=== PATIENT | female | born 1985 | race Caucasian/White ===

== ENCOUNTER → 2023-10-28 | Outpatient (CLI) | payer BC, SELFPAY | END | disposition home or self-care (01) | LOC: LABSPEC 13:10 | PROVIDERS: Referring Provider Nurse Practitioner Women's Health; Visit Provider Nurse Practitioner Women's Health | DX: N89.8 Other specified noninflammatory disorders of vagina (principal) | CPT/HCPCS: 87070; 87077; 87205 ==

== ENCOUNTER → 2024-07-26 | Outpatient (CLI) | payer BC, SELFPAY ==
--- NOTE | 2024-07-26 13:12 | US_ITS ---
INDICATION: AUB EXAMINATION: Ultrasound US Pelvis Non OB Complete With Transvaginal Imaging TECHNIQUE: Transabdominal and transvaginal pelvic ultrasound was performed. Grayscale, spectral waveform, and color flow Doppler evaluation of the adnexa. COMPARISON: No relevant prior comparison study available FINDINGS: UTERUS: Anteverted. The uterus measures 11.3 x 5.7 x 6.3 cm. There is a mass in the posterior fundus of the uterus measuring about 3.5 x 3.5 x 2.4 cm consistent with uterine fibroid. The endometrial stripe measures 14 mm in AP diameter which is borderline in thickness. Nabothian cyst seen in the cervix. RIGHT OVARY: 4.3 x 3.5 x 2.6 cm. There is a septated 3.2 cm cyst in the right ovary. There is another cyst measuring about 2.5 cm. There is normal arterial inflow and venous outflow present in the right ovary. LEFT OVARY: Absent, previously removed. FREE FLUID: None. The calculated prevoid bladder volume is 570 cc. US/Pelvic w/ Transvaginal IMPRESSION: 1. Uterine fibroid. 2. Right ovarian cysts. 3. Status post left nephrectomy. 4. Nabothian cysts in the cervix. Electronically Signed: Raúl Vazquez MD at 9:43 EDT ,
== END | disposition home or self-care (01) ==
PROVIDERS: PCP Physician Assistant; Referring Provider Nurse Practitioner Women's Health; Visit Provider Nurse Practitioner Women's Health
DX: N93.9 Abnormal uterine and vaginal bleeding, unspecified (principal)
CPT/HCPCS: 76830; 76856

== ENCOUNTER → 2024-08-02 | Outpatient (CLI) | payer BC, SELFPAY ==
--- NOTE | 2024-08-02 | EMB_PTH ---
PATIENT: ALLIE MAIN LOC: [facility] U#:[id number] AGE/SX: 38/F ROOM: RE08/02/[address]: GERALD [place] : 1985 BED: DIS: 08/02/2024 SPEC #: [id number] RECD: 08/02/24 13:12 STATUS: GREG VALLESYovani #: [id number] GABBY: 08/02/24 00:[address]: Argentina Camacho NP DEPT: SURGICAL PATHOLOGY RECD BY: Chinedu Diaz ENTERED: 08/02/24 13:12 SP TYPE: ENDOM BX/C DEBBIE DR: Jackson Ballard PA-C Tissues: Endometrium, NOS Procedures: Surgery Specimen Level IV HEADER OPERATION: Endometrial biopsy PRE-OP DIAGNOSIS: Abnormal uterine bleeding TISSUE SUBMITTED: Endometrial tissue MICROSCOPIC DIAGNOSIS Endometrial biopsy: Consistent with extensive exogenous hormone effects. Focal area of secretory endometrium. See comment. SJ.mr 08/03/2024 COMMENT Clinical correlation and appropriate follow up are necessary. MICROSCOPIC DESCRIPTION Slides are reviewed. GROSS DESCRIPTION Received is one container labeled with the patient's name and not further designated. The specimen consists of multiple irregular fragments of pink soft tissue that in aggregate measure 7.5 x 3.0 x 0.3 cm. The specimen is totally submitted in three cassettes. 08/02/2024 TC:5 CPT:76033
[2024-08-02 12:32] LABS: Absolute Lymphocyte Count 1.52 X10^3/uL (0.83-4.51); Basophil# 0.03 X10^3/uL; Basophil% 0.3 % (0-1); Eosinophil# 0.09 X10^3/uL; Eosinophils% 0.8 % (0-5); Hematocrit 37.7 % (37-47); Hemoglobin 12.1 g/dL (12.0-15.0); Lymphocyte # 1.52 X10^3/ul (0.83-4.51); Lymphocyte % 13.4 % (19-41); Mean Corp Hgb Conc 32.1 g/dL (32-36); Mean Corpuscular Volume 84.2 fL (81-99); Mean Platelet Vol. 10.3 fl (6.2-12.0); Monocyte# 0.66 X10^3/uL; Monocyte% 5.8 % (0-10); NRBC Flagged by Analyzer 0 % (0-5); Neutrophil # 8.98 X10^3/uL (2.7-7.7); Neutrophil % 79.3 % (47-70); Platelet Count 340 K/mm3 (150-450); RBC Distribution Width CV 13.3 % (11.6-14.6); RBC Distribution Width SD 41.4 fl (35.1-43.9); Red Blood Count 4.48 M/mm3 (4.2-5.4); White Blood Count 11.3 K/mm3 (4.4-11.0)
[2024-08-03 04:08] LABS: Cancer Antigen 125 13.9 U/mL (0.0-38.1); Carcinoembryonic Antigen 1.4 ng/mL (0.0-4.7)
[2024-08-10 15:09] LABS: HPV APTIMA, High Risk Negative (Negative)
== END | disposition home or self-care (01) ==
LOC: BWCLAB 10:27
PROVIDERS: PCP Physician Assistant; Referring Provider Nurse Practitioner Women's Health; Visit Provider Nurse Practitioner Women's Health
DX: Z12.4 Encounter for screening for malignant neoplasm of cervix (principal); N89.8 Other specified noninflammatory disorders of vagina
CPT/HCPCS: 36415; 82378; 85025; 86304; 87070; 87205; 87624; 88175; 88305; G0145

== ENCOUNTER 2024-08-19 13:03 | Emergency (ER) | payer BC, SELFPAY ==
[2024-08-19 13:03] VITALS: BP 175/105; PULSE 84; RESP 16; TEMP 36.6; O2SAT 98; BMI 32.5
--- NOTE | 2024-08-19 13:40 | ED.VIS.FEGU ---
HPI <REE Dozier - Last Filed: 08/19/24 18:15> HPI - Female History of Present Illness Chief Complaint: Vag Bleeding Narrative Narrative: Patient presenting today due to abnormal vaginal bleeding that she has had over the past 7 weeks. She is currently being treated with Megace but despite taking this she has had to change her pad 6 times already today. She has concerns that she could be anemic. She reports that she feels fatigued and has a headache. She did call her associate sales manager office today and they recommended that she come into the ED for evaluation. She last had a transvaginal ultrasound in June that showed a large uterine fibroid, she also has a history of ovarian cysts. She reports that she will likely undergo a hysterectomy soon. PFSH <REE Dozier - Last Filed: 08/19/24 18:15> [facility] Medical History Endometriosis determined by laparoscopy History of ovarian cyst Asthma Home Medications ?Medication ?Instructions ?Recorded ?Last Taken ?Type albuterol sulfate 90 mcg/actuation 2 puff inhalation Q6H PRN 07/30/21 Unknown History aerosol inhaler clobetasol 0.05 % topical ointment 1 applic topical .COMPLEX #15 grams 07/30/21 Unknown Rx fenofibrate 50 mg capsule 50 mg PO DAILY 07/30/21 Unknown History clotrimazole-betamethasone 1 1 applic topical BID 2 weeks #45 10/28/23 Unknown Rx %-0.05 % topical cream grams megestrol 40 mg tablet 40 mg PO .COMPLEX #45 tabs 08/12/24 Unknown Rx Allergy/AdvReac Type Severity Reaction Status Date / Time Penicillins Allergy Intermediate Hives Verified 08/19/24 13:06 Sulfa (Sulfonamide Allergy Intermediate Hives Verified 08/19/24 13:06 Antibiotics) Hand Mud Analysis 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 Allergy Hives Verified 08/19/24 13:06 Family History Grandmother Pancreatic cancer Surgical History H/O unilateral oophorectomy H/O tubal ligation S/P Social History household members: spouse and children number of children: 3 current occupational status: employed current occupation: [employer] history of recent travel: Yes sexually active: Yes Smoking Status: Never smoker alcohol intake: never substance use type: does not use what type of physical activity do you participate in: aerobics and weight training frequency: 5-6 times per week seatbelt use: always do you feel safe at home: Yes additional social history: - [place] ROS <REE Dozier - Last Filed: 08/19/24 18:15> ROS ED Constitutional Constitutional ED: Reports other Details: Fatigue ; Denies chills or fever(s) Cardiovascular Cardiovascular: Denies chest pain Respiratory/Chest Respiratory/Chest: Denies dyspnea Gastrointestinal Gastrointestinal: Denies abdominal pain, nausea or vomiting Genitourinary Genitourinary ED: Denies dysuria or urinary frequency Musculoskeletal Musculoskeletal: Denies arthralgias or myalgias Integumentary Denies rash Neurologic Neurologic: Reports headache(s) EXAM <REE Dozier - Last Filed: 08/19/24 18:15> Physical Exam Const Vital Signs: 08/19/24 13:03 08/19/24 15:03 08/19/24 16:23 Temperature 97.8 F 97.8 F Temperature Source Oral Pulse Rate 84 78 78 Respiratory Rate 16 15 Blood Pressure 175/105 H 148/89 H 114/76 Blood Pressure Mean 128 108 88 Pulse Ox 98 100 Oxygen Delivery Method Room Air Positive well nourished, well developed and no apparent distress General Appearance ED: well developed HEENT Reports normocephalic and head/scalp atraumatic Mouth ED: Yes moist mucous membranes normal Eyes PERRL and EOMs intact bilaterally Neck full ROM and supple Chest Wall inspection of chest normal Resp normal respiratory effort and clear to auscultation bilaterally Cardio regular rate and regular rhythm GI soft to palpation, non-tender, non-distended and no masses Narrative: Pelvic examination performed. Normal external genitalia, a few small clots within the vaginal canal, cervix without any lesions, cervical os closed, no active bleeding from the cervix. Back/Spine normal ROM and normal to inspection Extremity normal to inspection and full ROM Neuro oriented x3, CN's II-XII intact bilaterally, moves all extremities, no focal motor deficits and no sensory deficits noted Sensorium / Orientation: awake and alert Psych mental status grossly normal and thought process normal Skin no rashes or lesions noted and no wounds <Dr. Forrest Romano DO - Last Filed: 08/19/24 16:08> Physical Exam Const Vital Signs: 08/19/24 13:03 08/19/24 15:03 08/19/24 16:23 Temperature 97.8 F 97.8 F Temperature Source Oral Pulse Rate 84 78 78 Respiratory Rate 16 15 Blood Pressure 175/105 H 148/89 H 114/76 Blood Pressure Mean 128 108 88 Pulse Ox 98 100 Oxygen Delivery Method Room Air MDM <REE Dozier - Last Filed: 08/19/24 18:15> [facility] Narrative Medical decision making narrative: Patient presenting today with concerns for anemia. She has had abnormal vaginal bleeding over the past 6 weeks, she is currently taking Megace. She reports that she was taking 2 other medications prior to the Megace but is unsure what exactly she was on, they did not seem to stop her bleeding. She has a history of uterine fibroids and ovarian cyst. She reports she likely will be needing a hysterectomy soon. She is nontoxic-appearing, she initially was hypertensive but her blood pressure did improve. Her initial H&H was 13.2 and 39.3, this was repeated prior to discharge and was 12.1 and 37.2. I did perform a pelvic exam, she had a few small clots within her vaginal canal but no active bleeding. Her ultrasound shows a right ovarian cyst, complex cyst within the left adnexa, and uterine fibroid. The attending did speak with Dr. Díaz, they recommend outpatient follow-up. They also recommended a dose of IV estrogen here which was ordered. She will be discharged home in a stable condition. I have personally performed a face to face assessment of the patient and have reviewed the EMILE Note. I performed a substantive portion of the visit including all aspects of the following. My gallardo findings include: History is 38-year-old female history of uterine fibroid presenting with multi week history of vaginal bleeding. Worse today. Patient feeling fatigued with headache. Patient was sent to the emergency room by a gynecology clinic concern for anemia. Patient has been on multiple hormonal medications without significant relief of the bleeding. Exam is afebrile hypertensive. Not tachycardic. No parlor. Pelvic exam performed by a physician apartment assistant manager. Please see their note. Medical Decison Making hemoglobin 13.2 was repeated about 2 hours later is 12.1. No significant bleeding noted on pelvic examination per PA. test is negative. Pelvic ultrasound was obtained. I discussed the results of this ultrasound with Dr. Díaz directly who reviewed the images. Recommendation is outpatient follow-up. She received a dose of estrogen IV here in the department. Will continue home medications. Lab Data Attestation: I reviewed the patient's lab results. Labs: Laboratory Results - last 24 hr 08/19/24 08/19/24 13:25 15:30 Hgb 13.2 12.1 Hct 39.3 37.2 Serum , Qual NEGATIVE Radiography Diagnostic Testing: Clinical Impression(s) from Imaging Studies Transvaginal US 08/19/24 13:47 IMPRESSION: 2.7 cm x 2.3 cm x 2.4 cm right ovarian cyst. Status post left oophorectomy. 3.6 cm x 2.2 cm x 2 some are complex cystic structure in left adnexa. There is also evidence of a 2.3 cm x 1.9 cm x 1.9 cm simple cyst in the left adnexa. Electronically Signed: Eddie Lazaro MD at 15:15 EST , <Dr. Forrest Romano, DO - Last Filed: 08/19/24 16:08> [facility] Narrative Medical decision making narrative: Patient presenting today with concerns for anemia. She has had abnormal vaginal bleeding over the past 6 weeks, she is currently taking Megace. She reports that she was taking 2 other medications prior to the Megace but is unsure what exactly she was on, they did not seem to stop her bleeding. She has a history of uterine fibroids and ovarian cyst. She reports she likely will be needing a hysterectomy soon. She is nontoxic-appearing, she initially was hypertensive but her blood pressure did improve I have personally performed a face to face assessment of the patient and have reviewed the EMILE Note. I performed a substantive portion of the visit including all aspects of the following. My gallardo findings include: History is 38-year-old female history of uterine fibroid presenting with multi week history of vaginal bleeding. Worse today. Patient feeling fatigued with headache. Patient was sent to the emergency room by a gynecology clinic concern for anemia. Patient has been on multiple hormonal medications without significant relief of the bleeding. Exam is afebrile hypertensive. Not tachycardic. No parlor. Pelvic exam performed by a physician apartment assistant manager. Please see their note. Medical Decison Making hemoglobin 13.2 was repeated about 2 hours later is 12.1. No significant bleeding noted on pelvic examination per PA. test is negative. Pelvic ultrasound was obtained. I discussed the results of this ultrasound with Dr. Díaz directly who reviewed the images. Recommendation is outpatient follow-up. She received a dose of estrogen IV here in the department. Will continue home medications. History & Record Review Discussion w/independent historian: Patient and Significant other Additional record(s) reviewed:: Prior outpatient record and Prior labs Lab Data Labs: Laboratory Results - last 24 hr 08/19/24 08/19/24 13:25 15:30 Hgb 13.2 12.1 Hct 39.3 37.2 Serum , Qual NEGATIVE Radiography Diagnostic Testing: Clinical Impression(s) from Imaging Studies Transvaginal US 08/19/24 13:47 IMPRESSION: 2.7 cm x 2.3 cm x 2.4 cm right ovarian cyst. Status post left oophorectomy. 3.6 cm x 2.2 cm x 2 some are complex cystic structure in left adnexa. There is also evidence of a 2.3 cm x 1.9 cm x 1.9 cm simple cyst in the left adnexa. Electronically Signed: Eddie Lazaro MD at 15:15 EST , Discharge Plan Triage Chief Complaint: Vag Bleeding ED Midlevel Provider: Cecy Ash ED Provider: Forrest Romano Dx/Rx/DC Orders Clinical Impression: Uterine fibroid, Abnormal uterine bleeding (AUB) Instructions: ED Dysfunctional Uterine Bleeding, ED Uterine Fibroids Prescriptions: No Action fenofibrate 50 mg capsule 50 mg PO DAILY albuterol sulfate 90 mcg/actuation HFA aerosol inhaler 2 puff inhalation Q6H PRN clobetasol 0.05 % ointment 1 applic topical .COMPLEX Qty: 15 2RF Rx Instructions: 1 applic topical apply bid X 2 weeks, daily X 2 weeks then prn. Small amount and massge in; clotrimazole-betamethasone 1-0.05 % cream 1 applic topical BID 14 Days Qty: 45 1RF megestrol 40 mg tablet 40 mg PO .COMPLEX Qty: 45 0RF Rx Instructions: 40 mg PO tid until bleeding stops then bid to finish RX; Primary Care Provider: Jackson Ballard Referrals: Jackson Ballard PA-C [Primary Care Provider] - Precious Mcqueen DO [Med Staff - Active Staff] - As soon as possible Print Language: Kinyarwanda Disposition Disposition: Home, Self Care Discharge Date/Time: 08/19/24 16:24
[2024-08-19] MEDS: Ketorolac 15 MG/ML Vial IV (13:42)
[2024-08-19 13:47] LABS: Hematocrit 39.3 % (37-47); Hemoglobin 13.2 g/dL (12.0-15.0)
--- NOTE | 2024-08-19 13:47 | US_ITS ---
STUDY: ULTRASOUND OF THE FEMALE PELVIS - COMPLETE REASON FOR EXAM: Female, 38 years old. Abnormal vaginal bleeding LMP: July 14, 2024. TECHNIQUE: Transvaginal TECHNICAL QUALITY: Adequate. COMPARISON: Comparison is made with prior study dated July 26, 2024. FINDINGS: The uterus is anteverted and is in a midline position. The uterus measures 10.1 cm x 6.5 cm x 5 cm. Normal uterine cervix. The endometrium measures 9.7 mm in thickness, and is hyperechoic. There is no demonstrated endometrial mass. 2 fibroids are seen. The larger fibroid measures 3.6 cm x 3.8 cm x 3.1 cm. I.U.D. - The patient does not have an I.U.D. The right ovary is visualized. The right ovary measures 4.1 cm x 3.8 cm x 2.8 cm. There is a 2.7 cm x 2 0.3 cm x 2.4 cm simple cyst in the right ovary. There is no visualized right adnexal mass or complex lesion. There is normal arterial and normal venous vascularity. The patient is status post left oophorectomy. There is evidence of a 3.6 cm x 2.27 x 2 cm complex cystic structure in the left adnexa. Adjacent to this, there is a 2.3 cm x 1.9 cm x 1.9 cm cyst. There is no fluid in the cul-de-sac. US/Transvaginal Non- IMPRESSION: 2.7 cm x 2.3 cm x 2.4 cm right ovarian cyst. Status post left oophorectomy. 3.6 cm x 2.2 cm x 2 some are complex cystic structure in left adnexa. There is also evidence of a 2.3 cm x 1.9 cm x 1.9 cm simple cyst in the left adnexa. Electronically Signed: Eddie Lazaro MD at 15:15 EST ,
[2024-08-19] MEDS: Estrogens,Conj. 25 MG Vial IV (14:49)
[2024-08-19 15:03] VITALS: BP 148/89; PULSE 78
[2024-08-19 15:37] LABS: Hematocrit 37.2 % (37-47); Hemoglobin 12.1 g/dL (12.0-15.0)
[2024-08-19 15:54] LABS: Internal QC Validated? YES +Cl - CLEAR BKGD; Pregnancy, Serum, hCG Quali. NEGATIVE Negative
[2024-08-19 16:23] VITALS: BP 114/76; PULSE 78; RESP 15; TEMP 36.6; O2SAT 100
== END 2024-08-19 16:24 | disposition home or self-care (01) ==
PROVIDERS: Physician Assistant; Emergency Provider Emergency Medicine; PCP Physician Assistant; Referring Provider Emergency Medicine; Visit Provider Emergency Medicine
DX: D25.9 Leiomyoma of uterus, unspecified (principal); N93.9 Abnormal uterine and vaginal bleeding, unspecified; N83.201 Unspecified ovarian cyst, right side; Z79.818 Long term (current) use of other agents affecting estrogen receptors and estrogen levels; J45.909 Unspecified asthma, uncomplicated; R51.9 Headache, unspecified
CPT/HCPCS: 76830; 84703; 85014; 85018; 96374; 96375; 99282; A4216; J1410

== ENCOUNTER → 2024-08-23 | Outpatient (CLI) | payer BC, SELFPAY ==
[2024-08-23 12:22] LABS: Absolute Lymphocyte Count 1.47 X10^3/uL (0.83-4.51); Absolute Neutrophil Count 4.6 X10^3/uL (2.0-7.7); Basophil# 0.01 X10^3/uL; Basophil% 0.1 % (0-1); Eosinophil# 0.16 X10^3/uL; Eosinophils% 2.4 % (0-5); Hematocrit 36.6 % (37-47); Hemoglobin 11.7 g/dL (12.0-15.0); Lymphocyte # 1.47 X10^3/ul (0.83-4.51); Mean Corpuscular Hgb 27.5 pg (27.0-32.0); Mean Corpuscular Volume 85.9 fL (81-99); Mean Platelet Vol. 11.1 fl (6.2-12.0); Monocyte# 0.46 X10^3/uL; Monocyte% 6.9 % (0-10); NRBC Flagged by Analyzer 0 % (0-5); Neutrophil # 4.57 X10^3/uL (2.7-7.7); Neutrophil % 68.3 % (47-70); Platelet Count 255 K/mm3 (150-450); RBC Distribution Width CV 13.9 % (11.6-14.6); RBC Distribution Width SD 42.8 fl (35.1-43.9); Red Blood Count 4.26 M/mm3 (4.2-5.4); White Blood Count 6.7 K/mm3 (4.4-11.0)
[2024-08-23 12:56] LABS: ALB/GLOB Ratio 0.9 RATIO (0.9-2.4); AST(SGOT) 11 U/L (15-37); Alanine Aminotransfer ALT/SGPT 14 U/L (13-56); Albumin, Serum 3.7 g/dL (3.2-5.0); Alkaline Phosphatase 53 U/L (45-117); Anion Gap 6 (5-15); BUN 12 mg/dL (7-18); BUN/Creat Ratio 17.1 RATIO (10-20); Calcium,Total 9.1 mg/dL (8.5-10.1); Chloride 111 mmol/L (98-107); EST Glomerular Filtration Rate 98 mL/min (>60); Est Glom Filt Rate - Afr Amer 119 mL/min (>60); Globulin 4.2 g/dL (2.2-4.2); Glucose 85 mg/dL (74-106); Protein, Total 7.9 g/dL (6.4-8.2); Sodium Level 139 mmol/L (136-145); Thyroid Stim Hormone (TSH) 0.897 uIU/mL (0.358-3.740)
== END | disposition home or self-care (01) ==
LOC: BWCLAB 10:22
PROVIDERS: Obstetrics & Gynecology; PCP Physician Assistant; Referring Provider Nurse Practitioner Women's Health; Visit Provider Nurse Practitioner Women's Health
DX: N93.9 Abnormal uterine and vaginal bleeding, unspecified (principal); N92.0 Excessive and frequent menstruation with regular cycle; R42 Dizziness and giddiness; Z13.29 Encounter for screening for other suspected endocrine disorder; E78.00 Pure hypercholesterolemia, unspecified
CPT/HCPCS: 36415; 80053; 84443; 85025; 86850; 86900; 86901

== ENCOUNTER 2024-08-30 09:51 | Day surgery (SDC) | payer BC, SELFPAY ==
--- NOTE | 2024-08-23 10:37 | EKG12_ITS ---
Test Reason : PREOP Blood Pressure : */* mmHG Vent. Rate : 69 BPM Atrial Rate : 69 BPM P-R Int : 124 ms QRS Dur : 88 ms QT Int : 396 ms P-R-T Axes : -21 29 48 degrees QTcB Int : 424 ms Normal sinus rhythm Normal ECG Confirmed by Gavino Martinez ([id number]), book or script editor HUMA THAKUR ([id number]) on 08/24/2024 5:49:32 AM Referred By: Precious Mcqueen Confirmed By: Gavino Martinez
[2024-08-30] VITALS (14 sets, daily range): BP systolic 114–159; BP diastolic 57–102; PULSE 73–95; RESP 16–17; TEMP 36.4–37.6; O2SAT 93–100; BMI 31.8
--- NOTE | 2024-08-30 10:20 | HP.PCM_ITS ---
History and Physical Date of Admission: 08/30/24 Vital Signs 08/20/2414:09 08/23/2409:49 08/23/2409:51 Height 5 ft 4 in 5 ft 4 in 5 ft 4 in Weight: 190 lb BMI 32.5 BP 126/84 H Intake Visit Reasons: TRH possible lysis of adhesions, BS, cystoscopy Hardboard Supervisor Required: No Is patient in pain?: No Allergies Penicillins Allergy (Intermediate, Verified 08/23/24 09:49) HivesSulfa (Sulfonamide Antibiotics) Allergy (Intermediate, Verified 08/23/24 09:49) HivesHand Sap Basis Administrator Allergy (Verified 08/23/24 09:49) Hives Medications ?Medication ?Instructions ?Recorded ?Confirmed ?Type albuterol sulfate 90 mcg/actuation 2 puff inhalation Q6H PRN 07/30/21 08/23/24 History aerosol inhaler clobetasol 0.05 % topical ointment 1 applic topical .COMPLEX #15 grams 07/30/21 08/23/24 Rx fenofibrate 50 mg capsule 50 mg PO DAILY 07/30/21 08/23/24 History clotrimazole-betamethasone 1 1 applic topical BID 2 weeks #45 10/28/23 08/23/24 Rx %-0.05 % topical cream grams megestrol 40 mg tablet 40 mg PO .COMPLEX #45 tabs 08/12/24 08/23/24 Rx benazepril 20 mg tablet 20 mg PO QDAY 08/23/24 08/23/24 History PFSH Medical History Endometriosis determined by laparoscopy History of ovarian cyst Asthma Surgical History H/O unilateral oophorectomy H/O tubal ligation S/P Family History Grandmother Pancreatic cancer Social History household members: spouse and children number of children: 3 current occupational status: employed current occupation: [employer] history of recent travel: Yes sexually active: Yes Smoking Status: Never smoker alcohol intake: never substance use type: does not use what type of physical activity do you participate in: aerobics and weight training frequency: 5-6 times per week seatbelt use: always do you feel safe at home: Yes additional social history: - [place] HPI TRH possible lysis of adhesions, BS, cystoscopy Details: Details: ALLIE 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 This is being done somewhat urgently for heavy vaginal bleeding. She was in the ER yesterday due to persistent heavy vaginal bleeding and dizziness. There her hg was noted to be 13 and ultrasound showed the following: STUDY: ULTRASOUND OF THE FEMALE PELVIS - COMPLETE REASON FOR EXAM: Female, 38 years old. Abnormal vaginal bleeding LMP: July 14, 2024. TECHNIQUE: Transvaginal TECHNICAL QUALITY: Adequate. COMPARISON: Comparison is made with prior study dated July 26, 2024. FINDINGS: The uterus is anteverted and is in a midline position. The uterus measures 10.1 cm x 6.5 cm x 5 cm. Normal uterine cervix. The endometrium measures 9.7 mm in thickness, and is hyperechoic. There is no demonstrated endometrial mass. 2 fibroids are seen. The larger fibroid measures 3.6 cm x 3.8 cm x 3.1 cm. I.U.D. - The patient does not have an I.U.D. The right ovary is visualized. The right ovary measures 4.1 cm x 3.8 cm x 2.8 cm. There is a 2.7 cm x 2 0.3 cm x 2.4 cm simple cyst in the right ovary. There is no visualized right adnexal mass or complex lesion. There is normal arterial and normal venous vascularity. The patient is status post left oophorectomy. There is evidence of a 3.6 cm x 2.27 x 2 cm complex cystic structure in the left adnexa. Adjacent to this, there is a 2.3 cm x 1.9 cm x 1.9 cm cyst. There is no fluid in the cul-de-sac. US/Transvaginal Non- IMPRESSION: 2.7 cm x 2.3 cm x 2.4 cm right ovarian cyst. Status post left oophorectomy. 3.6 cm x 2.2 cm x 2 some are complex cystic structure in left adnexa. There is also evidence of a 2.3 cm x 1.9 cm x 1.9 cm simple cyst in the left adnexa. she has tried continuous ocps, higher strength ocps, progesterone only therapy, and finally yesterday IV estrogen. endometrial biopsy and pap were normal. Her TSH level is still pending. She would like to proceed with hysterectomy as soon as possible. History 2 Elective abortions Hx Para 2 Spontaneous abortions Hx # Term Pregnancies Ectopic pregnancies Hx # Pregnancies Multiple births # of living children 2 Past Pregnancies Del. Date Name GA/Weeks Outcome Route Bth Weight Gen Labor Lgth Anesthesia Del Locatn Provider FOB Unknown Tanmay 2002 adopted Unknown Saul 2005 Unknown Sol 2011 ROS Const ROS Unobtainable: All systems reviewed & are unremarkable except as noted in H Resp Resp: Reports system reviewed and no additional complaints, except as documented; Denies cough GI GI: Reports as per HPI Psych Psych: Reports system reviewed and no additional complaints, except as documented Exam Const General: cooperative, healthy appearing, comfortable and no acute distress Resp Effort & Inspection: normal respiratory effort Skin General: no rashes or lesions noted Psych Appearance: grossly normal Speech and Movement: speech and movement normal Coding Level of Care Code Off vis,est,level 4 Diagnoses Heavy menstrual bleeding N92.0 Endometriosis determined by laparoscopy N80.9 Right ovarian cyst N83.201 Intramural leiomyoma of uterus D25.1 Uterine leiomyoma location: intramural Abnormal uterine bleeding (AUB) N93.9 Menorrhagia with regular cycle N92.0 Assessment and Plan Assessment and Plan (1) Heavy menstrual bleeding: Status: Acute (2) Endometriosis determined by laparoscopy: Status: Acute (3) Right ovarian cyst: Status: Acute Comment: 2 cysts-repeat US 4-6 wk (4) Uterine fibroid: Status: Acute Qualifiers: Uterine leiomyoma location: intramural Qualified Code(s): D25.1 - Intramural leiomyoma of uterus Comment: 3.2cm (5) Abnormal uterine bleeding (AUB): Status: Acute Comment: failed aygestin. Megace (6) Menorrhagia with regular cycle: Status: Acute Plan After discussing the patient's diagnosis and treatment plan options, patient wishes to proceed with surgical management. I have discussed with the patient the risks, benefits, and alternatives of the procedure which include but are not limited to risks of anesthesia, bleeding, infection, possible damage to bowel, bladder, or surrounding vasculature which could lead to additional surgery to evaluate any complications. Patient agrees to procedure and wishes to proceed. ACOG/uptodate references given for additional information regarding procedure. plan for robotic hyst, bs, cysto on 08/30/24
[2024-08-30] MEDS: Magnesium 1 GM over 15 mins IV (10:36)
[2024-08-30] MEDS: Lactated Ringers 1,000 ML 40 ML IV (10:36)
[2024-08-30] MEDS: Gentamicin 300 MG in Dextrose 5%-Water (50mL Bag) 50 ML 100 MG IV (10:37)
[2024-08-30] MEDS: Gabapentin 600 MG Tablet PO (10:37)
[2024-08-30] MEDS: Phenazopyridine 95 MG Tablet 190 MG PO (10:37)
[2024-08-30] MEDS: Acetaminophen 500 MG Tablet 1000 MG PO ×2 (10:37→20:15)
[2024-08-30] MEDS: Celecoxib 200 MG Capsule 400 MG PO (10:37)
--- NOTE | 2024-08-30 10:44 | PCM.PRE.AN2 ---
ASA Classification* ASA Classification ASA Classification: 2 Assessment & Plan Anesthesia* Anesthesia Assessment Anesthesia Assessment: Discussed sedation and/or anesthesia options, risks, benefits, and alternatives with patient/parents/legal guardian/POA. Questions invited. The patient/parents/legal guardian/POA seems to understand and agrees to proceed with anesthesia plan. Reviewed the physical assessment, medical history, allergy history and patient home medications list prior to surgery/procedure/anesthetic and documented any changes. Performed airway and anesthesia risk assessments. Anesthesia Type Anesthesia Type: General Anesthesia Focused Assessment* Temperature: 99 F Pulse Rate: 91 Blood Pressure: 159/102 Respiratory Rate: 16 Pulse Ox: 99 Airway Assessment Mouth opens: >3 cm Mallampati Score: II Focused Labs Anesthesia Preop lab: CBC WBC 6.7 K/mm3 (4.4-11.0) 08/23/24 10:23 RBC 4.26 M/mm3 (4.2-5.4) 08/23/24 10:23 Hgb 11.7 g/dL (12.0-15.0) L 08/23/24 10:23 Hct 36.6 % (37-47) L 08/23/24 10:23 Plt Count 255 K/mm3 (150-450) 08/23/24 10:23 CHEMISTRY Potassium 4.0 mmol/L (3.5-5.1) 08/23/24 10:23 Sodium 139 mmol/L (136-145) 08/23/24 10:23 Magnesium 2.0 mg/dL (1.6-2.6) 08/23/24 10:23 BUN 12 mg/dL (7-18) 08/23/24 10:23 Creatinine 0.70 mg/dL (0.55-1.02) 08/23/24 10:23 Glucose 85 mg/dL (74-106) 08/23/24 10:23 TSH 0.897 uIU/mL (0.358-3.740) 08/23/24 10:23 COAG Tst Clinic Negative 08/02/24 09:52 Pre-Assessment Diagnosis/Proposed Procedure Planned Operative Procedure(s): TOTAL ROBOTIC HYSTERECTOMY POSS LYSIS OF ADHESIONS BILAT SALPINGECTOMY Anesthesia History 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 When Was Last Pacemaker Check QUESTION #4 FULL TEXT: You/Your Family Experience fever (hyperthermia) with Anesthesia Last Oral Intake Last Oral intake: Last Oral Intake NPO since 09:30 08/30/24 10:26 Meds taken in AM with sips of Yes 08/30/24 10:26 water? Meds patient instructed to take am of surgery PONV PONV - hat brim curler: PONV - hat brim curler Female Yes 08/24/24 13:34 HX of Motion Sickness No 08/24/24 13:34 HX of N/V After Surgery No 08/24/24 13:34 Non-Smoker Yes 08/24/24 13:34 Duration of Surgery greater Yes 08/24/24 13:34 than 60 minutes Number of Risk Factors 3 08/24/24 13:34 PONV Score Moderate Risk 08/24/24 13:34 Height & Weight Height & Weight: Anesthesia: Height & Weight Height 5 ft 4 in 08/30/24 10:26 Weight: 84 kg 08/30/24 10:26 Body Mass Index (BMI) 31.8 08/30/24 10:26 Respiratory Assessment Respiratory Assessment - hat brim curler: Respiratory Tract Infection Hx - hat brim curler Hx Respiratory Tract Infection No 08/24/24 13:34 STOP Sleep Apnea STOP Sleep Apnea - hat brim curler: STOP Sleep Apnea - hat brim curler Hx Hypertension Yes: CONTROLLED WITH MED 08/24/24 13:34 Hx Sleep Apnea No 08/24/24 13:34 CPAP BIPAP Do you snore loudly (louder No 08/24/24 13:34 than talking or can be heard Do you often feel tired/ No 08/24/24 13:34 fatigued/ sleepy during daytime? Has anyone observed you stop No 08/24/24 13:34 breathing during sleep? STOP Results Negative 08/24/24 13:34 QUESTION #5 FULL TEXT : Do you snore loudly (louder than talking or can be heard through closed doors)? Tobacco Use History Tobacco Use History - hat brim curler: Tobacco Use History - hat brim curler Tobacco Use Smoking Status Never smoker 08/24/24 13:34 Hx Tobacco Use No 08/24/24 13:34 Years Smoking Packs Smoked per Day Smoking Cessation Date was within the last 15 years Hx Smoking Cessation Date Hx Smoking Cessation Counseling Hematologic Medial History Hematologic Hx - hat brim curler: Hematologic Medical Hx - specialty therapist Hx of Blood Transfusion No 08/24/24 13:34 Hx of Transfusion in last 3 No 08/24/24 13:34 Months Date of Last Transfusion (if within last 3 months) Ever experience any problems No 08/24/24 13:34 with transfusion(s)? Specify any problems Hx of Preganancy in last 3 No 08/24/24 13:34 Months Nurse Filling Out Transfusion DSCHRIBER 08/24/24 13:34 & Questions: Date: 08/24/24 08/24/24 13:34 Time: 13:35 08/24/24 13:34 Patient unable to answer at this time (ie. confused, unrespo /Reproduction History /Reproductive History - hat brim curler: /Reproductive Hx- hat brim curler Hx Now No 08/24/24 13:34 Gestational Age (in weeks): EDC: Hx Hx Para Hx Section SAB No 08/24/24 13:34 Active Medications Active Medications: Current Medications Generic Name Dose Route Start Last Admin Trade Name Freq PRN Reason Stop Dose Admin Acetaminophen 1,000 mg 08/30/24 12:15 08/30/24 10:37 Acetaminophen 500 Mg Tablet PO 08/30/24 12:16 1,000 mg PREOP ONE Administration Celecoxib 400 mg 08/30/24 12:15 08/30/24 10:37 Celecoxib 200 Mg Capsule PO 08/30/24 12:16 400 mg X1 ONE Administration Gabapentin 600 mg 08/30/24 12:15 08/30/24 10:37 Gabapentin 600 Mg Tablet PO 08/30/24 12:16 600 mg PREOP ONE Administration Lactated Ringer's 1,000 mls @ 40 mls/hr 08/30/24 12:15 08/30/24 10:36 IV 40 mls/hr .Q25H MARILYNN Administration Clindamycin Phosphate 900 mg in 50 mls @ 75 mls/hr 08/30/24 12:15 Cleocin IV 08/30/24 12:54 PREOP ONE Lactated Ringer's 1,000 mls @ 70 mls/hr 08/30/24 12:15 IV .[id number] MARILYNN Gentamicin Sulfate 300 mg/ 57.5 mls @ 100 mls/hr 08/30/24 12:15 08/30/24 10:37 Dextrose IV 08/30/24 12:49 100 mls/hr PREOP ONE Administration Magnesium Sulfate 1 gm/ 102 mls @ 408 mls/hr 08/30/24 12:15 08/30/24 10:36 Dextrose IV 08/30/24 12:29 408 mls/hr X1 ONE Administration Insulin Human Lispro 0 unit 08/30/24 12:15 Insulin Lispro 100 Unit/Ml Insuln.Pen SC 08/30/24 18:00 Q4H PRN PRN BG >/= 180, SEE PROTOCOL Protocol Ondansetron HCl 4 mg 08/30/24 12:15 Ondansetron 4 Mg/2 Ml Vial IV 08/30/24 12:16 X1 ONE Phenazopyridine HCl 190 mg 08/30/24 12:15 08/30/24 10:37 Phenazopyridine 95 Mg Tablet PO 08/30/24 12:16 190 mg X1 ONE Administration PFSH Medical History Wears glasses High cholesterol Non-smoker Hypertension Endometriosis determined by laparoscopy History of ovarian cyst Asthma Home Medications ?Medication ?Instructions ?Recorded ?Last Taken ?Type albuterol sulfate 90 mcg/actuation 2 puff inhalation Q6H PRN 07/30/21 Unknown History aerosol inhaler shortness of breath or wheezing fenofibrate 50 mg capsule 50 mg PO DAILY 07/30/21 Unknown History benazepril 20 mg tablet 20 mg PO QDAY 08/23/24 Unknown History Allergy/AdvReac Type Severity Reaction Status Date / Time Penicillins Allergy Intermediate Hives Verified 08/30/24 10:25 Sulfa (Sulfonamide Allergy Intermediate Hives Verified 08/30/24 10:25 Antibiotics) Hand Horticultural Manager Allergy Hives Verified 08/30/24 10:25 Family History Grandmother Pancreatic cancer Surgical History History of tonsillectomy and adenoidectomy H/O unilateral oophorectomy H/O tubal ligation S/P Social History household members: spouse and children number of children: 3 current occupational status: employed current occupation: [employer] history of recent travel: Yes sexually active: Yes Smoking Status: Never smoker alcohol intake: never substance use type: does not use what type of physical activity do you participate in: aerobics and weight training frequency: 5-6 times per week seatbelt use: always do you feel safe at home: Yes additional social history: - [place] Review of Systems (Anesthesia) ROS Narrative System reviewed and no additional complaints, except as documented.
[2024-08-30 11:35] LABS: Bedside Glucose 104 mg/dL (74-106)
--- NOTE | 2024-08-30 12:15 | HYST_PTH ---
PATIENT: ALLIE MAIN LOC: [facility] [place] U#:[id number] AGE/SX: 38/F ROOM: RE08/30/[address]: Dr. Precious Mcqueen DO : 1985 BED: DIS: 08/31/2024 SPEC #: [id number] RECD: 08/31/24 10:43 STATUS: GREG HINTON #: [id number] GABBY: 08/30/24 12:[address]: Precious Mcqueen DEPT: SURGICAL PATHOLOGY RECD BY: Thelma Kirby ENTERED: 08/31/24 11:14 SP TYPE: HYSTERECT OTHR DR: Jackson Ballard PA-C Tissues: Uterus, NOS Procedures: Surgery Specimen Level V HEADER OPERATION: Laparoscopic robotic hysterectomy, right salpingectomy PRE-OP DIAGNOSIS: Heavy menstrual bleeding, endometriosis determined by laparoscopy, right ovarian cyst, uterine leiomyoma, abnormal uterine bleeding TISSUE SUBMITTED: Uterus, right fallopian tube MICROSCOPIC DIAGNOSIS Uterus, hysterectomy: Cervix - No pathologic change. Endometrium - Proliferative endometrium. Myometrium - Lieomyomas and focal superficial adenomyosis. Right fallopian tube- No pathologic change. AM. 09/01/2024 MICROSCOPIC DESCRIPTION Slides are reviewed. GROSS DESCRIPTION Received in fixative is one container labeled with the patient's name and designated uterus. The specimen consists of a uterus with attached cervix and a detached right fallopian tube. The uterus with cervix measures 10.5 x 6.5 x 6.5 cm and weighs 150 gm. The ectocervix is unremarkable. The cervical os is round in contour. The endocervical canal measures 3.5 cm in length and is grossly unremarkable. The triangular endometrial cavity measures 3.6 x 2.5 cm. The velvety, reddish-blanco endometrium measures up to 0.2 cm in thickness. The myometrium measures 2.2 cm in length and is distorted by two rubbery masses ranging in size from 2.2 to 4.0cm in greatest dimension. Serial sections of the masses reveal whorld appearances and cuts with a rubbery sensation. The fallopian tube free in the container measures 4.8cm in length and 0.5cm in average diameter. Sales Store Checker sections are submitted as follows: 1 - anterior cervix, 2 - posterior cervix, 3 & 4 - anterior uterine wall, 5 & 6 - posterior uterine wall, 7 - largest myometrium mass, 8 - smaller myometrium mass, 9- fallopian tube. / AM: 08/31/2024 TC:1 CPT: 82114
--- NOTE | 2024-08-30 12:29 | PCM.DC ---
Discharge Instructions Diet Discharge Diet: No restrictions DC O2, CPAP, BIPAP needs Additional Home O2 Discharge instructions: No Dressing / Incision May resume sexual activity in: 6 weeks Weight Bearing Status: Full weight bearing Lifting Restrictions: 10 pounds Dressing / Incision Call your doctor if your incision/area has: Continuous Slow Oozing, Sudden Increased Bleeding, Increased Pain/ Swelling, Increased Redness and Foul Smelling Discharge Call your doctor if you observe: Fever of 101 or Higher, Using more than 1 pad per hour, Shortness of breath, Chest pain and Uncontrolled pain Suture Line Care: Avoid Pulling/Pushing and Avoid Pinching/Bending Remove Dressing in: 1 week (if present) Cleanse incision/area with: Soap & Water and Keep Dressing Clean & Dry Follow Up Care Please Follow Up With: Precious Mcqueen DO When: Call to make an appointment with your doctor for a postop visit in 2 and 6 weeks Test Results: Test results from this visit will be discussed in further detail at your follow-up appointment, if applicable. Discharge Plan Admission Attending Provider: Precious Mcqueen Primary Care Provider: Jackson Ballard Instructions Print Language: Bermudian Discharge Orders/Prescriptions Prescriptions: New ibuprofen 800 mg tablet 800 mg PO Q8H PRN (Reason: pain) Qty: 30 0RF ondansetron HCl 4 mg tablet 4 mg PO Q6H PRN (Reason: nausea and vomiting) Qty: 20 0RF oxycodone-acetaminophen [Percocet] 5-325 mg tablet 1 tab PO Q4H PRN (Reason: pain) 7 Days Qty: 20 0RF Rx Instructions: 1-2 tabs q 4 hrs as needed for pain docusate sodium [Colace] 100 mg capsule 100 mg PO DAILY Qty: 30 0RF polyethylene glycol 3350 [Miralax] 17 gram/dose powder 17 g PO DAILY 7 Days Qty: 119 0RF Continued fenofibrate 50 mg capsule 50 mg PO DAILY albuterol sulfate 90 mcg/actuation HFA aerosol inhaler 2 puff inhalation Q6H PRN (Reason: shortness of breath or wheezing) benazepril 20 mg tablet 20 mg PO QDAY Referrals / Follow Up: Jackson Ballard PA-C [Primary Care Provider] - Disposition Disposition (needs filled in before D/C Order can be placed): Home, Self Care
[2024-08-30] MEDS: Bupivacaine 0.25% 30 ML Vial (15:23)
[2024-08-30] MEDS: Clindamycin 900 MG/50 ML BAG 75 MG IV (15:42)
[2024-08-30] MEDS: Aztreonam 2 GM in 0.9% Normal Saline (100mL MB+) 100 ML IV (16:45)
--- NOTE | 2024-08-30 17:21 | PCM.OPRPT ---
Problems Associated Problem List Diagnoses (1) Heavy menstrual bleeding: (2) Right ovarian cyst: (3) Uterine fibroid: (4) Abnormal uterine bleeding (AUB): (5) Menorrhagia with regular cycle: (6) Endometriosis determined by laparoscopy: Operative Report (Standard) Operative Information Surgery/Procedure Performed: total robotic hysterectomy, right salpingectomy, lysis of adhesions, cystoscopy Surgeon: Precious Mcqueen Date of Procedure: 08/30/24 Procedure Start Time: 16:01 Procedure Stop Time: 17:30 Pre-Operative Diagnosis: menorrhagia, fibroid uterus, endometriosis Post-Operative Diagnosis: menorrhagia, fibroid uterus, endometriosis Select all DRAINS/GRAFTS/IMPLANTS that apply: None Type of Anesthesia: General Estimated Blood Loss: 30cc Fluids Replaced: 900cc Specimen collected: Yes Description of specimen(s) removed: uterus, cervix, right fallopian tube Description of surgery: Findings: 10 cm size uterus, normal appearing right ovary and ligated tube. Left fallopian tube and ovarian adhesion to the descending colon. The uterus was irregularly shaped due to fibroids. The bowel, and liver were found to be normal. Cystoscopy showed no evidence of leaking at approximately 250 cc of normal saline, positive ureteral orifices and jet flow are seen and no suture material was appreciated in the bladder. Specimens removed: Uterus and cervix, right fallopian tube Reason for surgery: This is a 38-year-old G 2, P 2 who presented to my office with history of extremely heavy menses and had been seen in the emergency room multiple times due to extreme heaviness and lightheadedness. She was refractory to progesterone therapy and IV estrogen. The planned procedure is for a robotic hysterectomy the risks benefits and alternatives were discussed with the patient the patient had a clear understanding of the procedure and a consent form was signed. Procedure: The patient was placed in the dorsal low lithotomy position and prepped and draped in the normal sterile fashion both abdominally and in the perineum. Her legs were placed in stirrups a Dubose catheter was inserted into the urethra without difficulty. A weighted speculum was placed in the vagina and a single-tooth tenaculum was used to grasp the anterior lip of the cervix. An advincula uterine manipulator was inserted through the cervix without complication. It was then tied into place at the 2 and 10:00 locations on the cervix. Gloves were changed and attention was turned towards the abdomen. Approximately 23 cm above the pubic symphysis in the midline, and after Marcaine injection, a 8 mm incision was made. An 8 mm trocar was inserted through the laparoscope, then inserted into the abdomen under direct visualization using the laparoscope. Good abdominal placement was noted and no complications were appreciated. An air seal device was utilized to create pneumoperitoneum. At 12 cm lateral to the midline on the left and right sides 8 mm accessory ports were placed. Next a left upper quadrant 8 mm education administrative assistant port site was placed. The patient was placed in steep Trendelenburg position. The robot was docked. Omental adhesions to the uterine fundus were carefully dissected using the vessel sealer device. The left fallopian tube was noted to be incorporated with the descending colon. The left ovary may have been surgically removed and was not visible due to dense adhesions. The hysterectomy was initiated first by taking down the round ligament on each side using the vessel sealer device. The right fallopian tube was adherent to the right ovary and a tubal ligation was noted. The distal fallopian tube was removed with the vessel sealer device. Next, the broad ligament was then and taken down using the vessel sealer device. Next the bladder flap was taken down without complication. This was done using monopolar cautery to the level of the cervical vaginal junction. After the bladder flap was created, uterine vessels were then isolated and cauterized using the vessel sealer device and EndoShears. At this point the uterine vessels were taken down further starting from the ascending branch, dissecting along the edges of the cervix to the level of the cervical vaginal junction with hemostasis appreciated. The cervical vaginal junction was then using monopolar cautery in a circumferential pattern across the superior aspect of the cervix. The specimen was delivered through the vagina and sent to pathology. The remaining vaginal cuff was then closed using a V lock suture. This was performed in a running technique. Hemoblast and fibrillar were placed over small areas that were oozing excellent hemostasis was obtained and good closure was noted. Irrigation was then performed. All operative sites were noted to be hemostatic. A cystoscopy was performed with a 70 degree cystoscope through the urethra into the bladder without complication. The bladder was instilled with approximately 250 cc of normal saline. Intraoperative images were made. Ureteral orifices and jets were identified. No suture material was appreciated in the bladder. The bladder was then drained and cystoscope was removed. The abdominal cavity was again examined using the laparoscope after the robot was undocked. All operative sites were noted to be hemostatic. The trochars were removed under direct visualization without complication and pneumoperitoneum was reduced. At this point the skin was then closed using 4-0 Monocryl subcuticular stitch and sealed with surgical glue. The patient tolerated the procedure well sponge lap and needle counts were correct x2 the patient was taken to the recovery room in stable condition. Surgical Findings: Omental adhesions to the uterus, omental adhesions to the fallopian tube. Pipelines Supervisor dust mixer: Yes Municipal Engineer: Emily Peck Tasks completed by assisted living care manager: Closing and Insert Trochanter Additional education administrative assistant?: Yes Additional Flatbed Driver #2: Rachel Latham Tasks completed by education administrative assistant #2: Other (uterine manipulation ) Additional education administrative assistant?: No Complications Complications: No Admit VTE Documentation VTE Present on Admission: No VTE Mechan Device Prophylaxis: SCD's VTE Pharm Prophylaxis ordered?: Yes Procedures Urinary/Genital 52xxx-59xxx: 52334 TVH+BS/O <250gr uterus Multi Select Codes Urinary/Genital Urinary/Genital CPT Codes: 86823 Cystoscopy and 44643 TVH+BS/O <250gr uterus
--- NOTE | 2024-08-30 17:30 | PCM.POST.ANE ---
Anesthesia: Postop Eval I Current Vital Signs Temperature: 97.6 F Pulse Rate: 80 Blood Pressure: 115/66 Respiratory Rate: 16 Pulse Ox: 94 Oxygen Delivery Method: Nasal Cannula Assessment Airway patent: Yes Spontaneous unlabored respirations: Yes Mental status: Awake and Calm nausea: No Vomiting: No Anesthesia Complication: No Fluid Hydration Crystalloid volume administer (ml): 900 Total IV fluid infused: 900 Progress Note Anesthesia document: Postop Eval 1 completed: Yes
--- NOTE | 2024-08-30 17:31 | POSTOPAN2_ITS ---
Anesthesia Postop Eval I Sum Postop Eval Completion status Anesthesia document: Postop Eval 1 completed: Yes Anesthesia Postop Eval I Summary Anesthesia Postop Eval I Summary: Anesthesia Postop Eval I: Assessment Summary Airway patent Yes 08/30/24 17:31 ELECTROMECHANICAL EQUIPMENT ASSEMBLER.MDOT Spontaneous unlabored Yes 08/30/24 17:31 ELECTROMECHANICAL EQUIPMENT ASSEMBLER.MDOT respirations Mental status Awake,Calm 08/30/24 17:31 ELECTROMECHANICAL EQUIPMENT ASSEMBLER.MDOT nausea No 08/30/24 17:31 ELECTROMECHANICAL EQUIPMENT ASSEMBLER.MDOT Vomiting No 08/30/24 17:31 ELECTROMECHANICAL EQUIPMENT ASSEMBLER.MDOT Anesthesia Postop Eval I: Fluid Summary Crystalloid volume administer 900 08/30/24 17:31 ELECTROMECHANICAL EQUIPMENT ASSEMBLER.MDOT (ml) Colloids volume administered ( ml) Blood Product volume administered (ml) Total IV fluid infused 900 08/30/24 17:31 ELECTROMECHANICAL EQUIPMENT ASSEMBLER.MDOT Anesthesia Postop Eval I: Summary Notes Anesthesia Complication No 08/30/24 17:31 ELECTROMECHANICAL EQUIPMENT ASSEMBLER.MDOT Anesthesia Complication Comment: Post-operative progress note Anesthesia: Postop Eval II Evaluation Mental status: Awake and Calm Pain Level: 0 nausea: No Vomiting: No Complications Anesthesia Complication: No
--- NOTE | 2024-08-30 17:31 | PCM.POSTANE2 ---
Anesthesia Postop Eval I Sum Postop Eval Completion status Anesthesia document: Postop Eval 1 completed: Yes Anesthesia Postop Eval I Summary Anesthesia Postop Eval I Summary: Anesthesia Postop Eval I: Assessment Summary Airway patent Yes 08/30/24 17:31 OUTPATIENT [email or web address] Spontaneous unlabored Yes 08/30/24 17:31 OUTPATIENT DIETITIAN.MDOT respirations Mental status Awake,Calm 08/30/24 17:31 OUTPATIENT DIETITIAN.MDOT nausea No 08/30/24 17:31 OUTPATIENT DIETITIAN.MDOT Vomiting No 08/30/24 17:31 OUTPATIENT DIETITIAN.MDOT Anesthesia Postop Eval I: Fluid Summary Crystalloid volume administer 900 08/30/24 17:31 OUTPATIENT DIETITIAN.MDOT (ml) Colloids volume administered ( ml) Blood Product volume administered (ml) Total IV fluid infused 900 08/30/24 17:31 OUTPATIENT DIETITIAN.MDOT Anesthesia Postop Eval I: Summary Notes Anesthesia Complication No 08/30/24 17:31 OUTPATIENT DIETITIAN.MDOT Anesthesia Complication Comment: Post-operative progress note Anesthesia: Postop Eval II Evaluation Mental status: Awake and Calm Pain Level: 0 nausea: No Vomiting: No Complications Anesthesia Complication: No
[2024-08-30] MEDS: oxyCODONE 5 MG Tablet PO ×2 (20:15→21:35)
[2024-08-30] MEDS: Ibuprofen 400 MG Tablet 800 MG PO (21:34)
[2024-08-30] MEDS: Docusate Sodium 100 MG Capsule PO (21:35)
[2024-08-31] MEDS: Acetaminophen 500 MG Tablet 1000 MG PO ×2 (00:12→05:40)
[2024-08-31 03:51] VITALS: BP 133/78; PULSE 72; RESP 16; TEMP 36.8; O2SAT 98
[2024-08-31 07:01] LABS: Hematocrit 32.2 % (37-47); Hemoglobin 10.2 g/dL (12.0-15.0); Mean Corp Hgb Conc 31.7 g/dL (32-36); Mean Corpuscular Hgb 26.8 pg (27.0-32.0); Mean Corpuscular Volume 84.5 fL (81-99); Mean Platelet Vol. 10.3 fl (6.2-12.0); Platelet Count 274 K/mm3 (150-450); RBC Distribution Width CV 13.3 % (11.6-14.6); RBC Distribution Width SD 41.2 fl (35.1-43.9); Red Blood Count 3.81 M/mm3 (4.2-5.4); White Blood Count 15.7 K/mm3 (4.4-11.0)
[2024-08-31 07:30] VITALS: O2SAT 96
--- NOTE | 2024-08-31 07:39 | PCM.PN.OB ---
Subjective Subjective Patient is laying in bed comfortably without complaints. She states that she slept on an off during the night. Scant vaginal bleeding Objective Data Objective Data Vital Signs: Vital Signs Temp Pulse Resp BP Pulse Ox O2 Del Method O2 Flow Rate 98.2 F 72 16 133/78 H 98 Room Air 4 08/31/24 03:51 08/31/24 03:51 08/31/24 03:51 08/31/24 03:51 08/31/24 03:51 08/31/24 03:51 08/30/24 18:45 Oxygen Flow Rate (L/min) 4 Oxygen Delivery Method Room Air Weight: 185 lb 3.013 oz Body Mass Index (BMI) 31.8 Intake & Output: Intake and Output for Last 24 Hours 08/29/24 08/30/24 08/31/24 23:59 23:59 23:59 Intake Total 1688.5 / 2288.5 1400 / 1400 Output Total 250 / 650 1550 / 1550 Balance 1438.5 / 1638.5 -150 / -150 Lab / Micro Data 08/31/24 06:49 Labs: Laboratory Results - last 24 hr 08/30/24 10:52: POC Glucose 104 08/31/24 06:49: WBC 15.7 H, RBC 3.81 L, Hgb 10.2 L, Hct 32.2 L, MCV 84.5, MCH 26.8 L, MCHC 31.7 L, RDW Std Deviation 41.2, RDW Coeff of Ilia 13.3, Plt Count 274, MPV 10.3 ROS Constitutional Constitutional: Reports systems reviewed and no addt'l complaints, except as documented Cardiovascular Cardiovascular: Denies chest pain, dizziness, dyspnea or irregular heart rhythm Respiratory/Chest Respiratory/Chest: Denies cough, pain on inspiration or shortness of breath at rest Gastrointestinal Gastrointestinal: Denies abdominal pain, nausea or vomiting Genitourinary Genitourinary: Denies burning urination Musculoskeletal Musculoskeletal: Denies muscle cramps, muscle spasms or muscle weakness Neurologic Neurologic: Denies confusion, dizziness, headache(s) or lack of coordination Psychiatric Psychiatric: Denies anxiety, behavioral changes or depression Physical Exam Const alert, oriented x3 and no apparent distress HEENT normocephalic Chest Chest: symmetrical chest wall rise Resp normal respiratory effort and normal air movement GI soft to palpation, non-tender and non-distended no CVA tenderness Extremity normal to inspection General Extremity: edema bilateral (trace ) Assessment & Plan (1) Status post hysterectomy: PLAN: Plan patient is s/p robotic hysterectomy POD 1 1. routine ERAS protocol postop care- increase ambulation, encourage oral intake and oral control of pain. lovenox and scds for dvt prophylaxis, patient stable for discharge to home.
[2024-08-31 09:03] VITALS: BP 123/73; PULSE 73; RESP 16; TEMP 36.7; O2SAT 98
--- NOTE | 2024-08-31 09:47 | PHA.DC.MR.R ---
Pharmacy [facility] Med Reconciliation Pharmacy Service has performed discharge medication reconciliation for this patient. Medication education papers prepared, patient discharged before counseling could be completed. Medications reviewed. The patient's discharge medication list was reviewed for discrepancies and discrepancies were resolved. Medications at Discharge Home Medications albuterol sulfate 90 mcg/actuation aerosol inhaler 2 puff inhalation Q6H PRN shortness of breath or wheezing 07/30/21 fenofibrate 50 mg capsule 50 mg PO DAILY 07/30/21 benazepril 20 mg tablet 20 mg PO QDAY 08/23/24 docusate sodium 100 mg capsule (Colace) 100 mg PO DAILY #30 caps 08/30/24 ibuprofen 800 mg tablet 800 mg PO Q8H PRN pain #30 tabs 08/30/24 ondansetron HCl 4 mg tablet 4 mg PO Q6H PRN nausea and vomiting #20 tabs 08/30/24 oxycodone-acetaminophen 5 mg-325 mg tablet (Percocet) 1 tab PO Q4H PRN pain 7 days #20 tabs 08/30/24 polyethylene glycol 3350 17 gram/dose oral powder (Miralax) 17 g PO DAILY 7 days #119 grams 08/30/24
== END 2024-08-31 09:40 | disposition home or self-care (01) ==
LOC: SDC 09:52 → AC 09:53 → MS3 08-31 13:22
PROVIDERS: Anesthesiology; PCP Physician Assistant; Referring Provider Obstetrics & Gynecology; Visit Provider Obstetrics & Gynecology
PROC: 0UT90ZZ Resection of Uterus, Open Approach (ICD-10-PCS; CPT 58571; principal; 2024-08-30 11:55)
DX: D25.1 Intramural leiomyoma of uterus (principal); N93.9 Abnormal uterine and vaginal bleeding, unspecified; N92.0 Excessive and frequent menstruation with regular cycle; N73.6 Female pelvic peritoneal adhesions (postinfective); Z79.899 Other long term (current) drug therapy; J45.909 Unspecified asthma, uncomplicated; N80.03 Adenomyosis of the uterus; I10 Essential (primary) hypertension; E78.00 Pure hypercholesterolemia, unspecified
CPT/HCPCS: 58571; S2900; 00840; 36415; 82962; 83735; 85027; 88307; 93005; J2405; J3475